=== PATIENT | female | born 1975 | race Caucasian/White ===

== ENCOUNTER 2019-07-07 00:03 | Emergency (ER) | payer OTHER ==
[~2019-07-07] VITALS: Ht 165.1 cm; Wt 98.0 kg
[2019-07-07 00:19] VITALS: BP 106/73
[2019-07-07] MEDS ORDERED: ALPRAZolam 0.5 MG TAB PO STA (01:57)
[2019-07-07] MEDS ORDERED: KETOROLAC 15 MG/ML VIAL IM ONE (02:00)
[2019-07-07 02:37] LABS: APPEARANCE,URINE SL CLOUDY (CLEAR); BILIRUBIN,URINE 1+ (NEGATIVE); BLOOD, URINE 3+ (NEGATIVE); COLOR,URINE YELLOW (YELLOW); LEUKOCYTE ESTERASE ,URINE 1+ (NEGATIVE); NITRITE, URINE NEGATIVE (NEGATIVE); UGLUCOSE NEGATIVE (NEGATIVE)
[2019-07-07 02:45] VITALS: BP 106/73
[2019-07-07 02:47] LABS: RBC,URINE TOO NUMEROUS TO COUN /HPF (0-5)
[2019-07-07 02:48] LABS: WBC,URINE 20-60 /HPF (0-5)
== END 2019-07-07 02:45 | disposition left against medical advice (07) ==
LOC: MED 00:03
DX: M54.5 Low back pain (principal); F41.9 Anxiety disorder, unspecified; R11.0 Nausea
CPT/HCPCS: 81001; 81025; 87086; 96372; 99283; J1885